=== PATIENT | male | born 1970 | race Caucasian/White ===

== ENCOUNTER 2020-05-26 15:36 | Emergency (ER) | payer BC, SELFPAY ==
[~2020-05-26] VITALS: Ht 185.4 cm; Wt 90.7 kg
[2020-05-26 15:48] VITALS: BP_SYST 132
--- NOTE | 2020-05-26 16:03 | NUR ---
DR CANTU OUT TO [facility] TENT FOR EVALUATION
--- NOTE | 2020-05-26 16:05 | NUR ---
Pt brought by family, A&Ox4, pt presents to ER with rectal bleeding and pain, pt states it may be hemorroids, pt skin pink and warm, cap refill <3, VSS, respirations even and unlabored.
--- NOTE | 2020-05-26 16:05 | NUR ---
ER at bedside examining patient.
[2020-05-26 17:03] VITALS: BP_SYST 132
--- NOTE | 2020-05-26 17:06 | NUR ---
Patient given written and verbal discharge instructions and verbalizes understanding. ER MD discussed with patient the results and treatment provided. Patient in stable condition. ID arm band removed. No Rx given. Patient educated on pain management and to follow up with PMD. Pain Scale 0/10. Opportunity for questions provided and answered. Medication side effect fact sheet provided.
== END 2020-05-26 17:06 | disposition home or self-care (01) ==
LOC: SED 15:36
DX: K64.9 Unspecified hemorrhoids (principal); Z88.0 Allergy status to penicillin
CPT/HCPCS: 99281